=== PATIENT | male | born 1995 | race Caucasian/White ===

== ENCOUNTER 2018-09-26 18:46 | Emergency (ER) | payer OTHER ==
[2018-09-26] MEDS: IBUPROFEN 200 MG TAB PO (20:30)
== END 2018-09-26 21:45 | disposition home or self-care (01) ==
LOC: FTE 18:46
DX: S89.91XA Unspecified injury of right lower leg, initial encounter (principal); X58.XXXA Exposure to other specified factors, initial encounter; Y92.321 Football field as the place of occurrence of the external cause; Z85.830 Personal history of malignant neoplasm of bone
CPT/HCPCS: 29505; 99282-25

== ENCOUNTER 2018-12-10 20:13 | Emergency (ER) | payer MEDICAID, OTHER ==
[2018-12-10] MEDS: KETOROLAC 30 MG INJ IM (20:51)
== END 2018-12-10 22:10 | disposition home or self-care (01) ==
LOC: FTE 20:13
DX: M25.561 Pain in right knee (principal); Z85.830 Personal history of malignant neoplasm of bone
CPT/HCPCS: 73562; 96372; 99284-25